=== PATIENT | female | born 1960 | race Caucasian/White ===

== ENCOUNTER → 2016-12-17 | Day surgery (SDC) | payer OTHER, MEDICARE ==
[~2016-12-17] MED LIST: ANTIVERT 25 MG25 MG PO; CALCIUM 600600 M1; CELEBREX200 MG PO; CYMBALTA60 MG PO; DOLOPHINE10 MG PO; FERREX PO; KEFLEX500 MG PO; LORAZEPAM0.5 MG PO; MORPHINE SULFAT30 M1 PO; NEURONTIN100 MG PO; NEXIUM20 MG PO; NOVAPLUS F100 MCG/HR TD; VITAMIN B12 1541 TAB PO; VITAMIN C100 M1 PO; VITAMIN D50000 IU PO
--- NOTE | 2016-12-17 11:24 | Operative Report ---
Operative/Inv Procedure Report Surgery Date: 12/17/16 Name of Procedure: Breast excisional biopsy with wire localization Pre-Operative Diagnosis: Left breast Microcalcifications Post-Operative Diagnosis: Same Estimated Blood Loss: less than 50ml Surgeon/[employer]isher: NABEEL CRESPO MD Anesthesia: local monitored anesthesi Specimens: Left breast biopsy Operative/Procedure Note Note: Patient had microcups case in the left breast and was unable tolerate stereotactic biopsy. Patient is brought to the operating room on 12/17/2016 after preoperative wire localization was performed the films reviewed. Anesthesia was administered, 2 g of Ancef was given, and the left breast was prepped and draped in sterile fashion using ChloraPrep. Local anesthesia 1% lidocaine exception Marcaine was given and a curvilinear incision was made at 1:00 in the left breast. The wire was brought into the incision. The area of Concern was grasped using an Allis clamp. The tissue was dissected and the specimen was marked for orientation and margin map. Intraoperative x-ray confirmed the presence of the calcifications in the specimen. Hemostasis was achieved using electrocautery. Deep tissue was approximated using interrupted Vicryl sutures, and the skin was closed using a running 4-0 subcuticular stitch. Steri-Strips and sterile dressings were applied, and the patient was transferred to the recovery room in satisfactory condition having tolerated the procedure well.
--- NOTE | 2016-12-17 14:55 | MAMMOGRAPHY REPORT ---
PROCEDURE: MM GUIDANCE FOR BREAST PREOPERATIVE NEEDLE LOCALIZATION, LEFT SPECIMEN RADIOGRAPHY CLINICAL INFORMATION: Suspicious left breast calcifications at upper outer quadrant at about 1 o'clock position seen on recent diagnostic mammogram done on 10/27/2016. Patient has spinal canal stenosis and is unable to undergo stereotactic biopsy. Excisional biopsy is requested. COMPARISON: Prior studies done on 10/27/2016. TECHNIQUE/FINDINGS: The details of the procedure, as well as the risks, benefits, and alternatives to the procedure were explained to the patient in detail and all of her questions were answered, after which, written informed consent was obtained. Prior to the procedure, the previous sonographic-guided tissue marker placement was localized using CC and ML views. Please note that there is no residual mass identified at this time in the biopsy bed. A time-out was performed, the lesion intended for needle localization was targeted and the skin of the left breast was then prepped and draped in the usual sterile fashion. Using mammographic guidance, sterile technique and buffered 2% lidocaine without epinephrine for local anesthesia, a 5 cm Kopans needle-wire was placed at the site of the tissue marker at 1 o'clock within the left breast. The patient tolerated the procedure well. The worksheet was appropriately labeled and was sent to the OR with the patient. Subsequently, following excision of the mass, specimen radiography was performed which revealed intact wire, and the targeted calcification. IMPRESSION: 1. Successful mammographic-guided needle localization of the left breast suspicious calcifications at upper outer quadrant at about 1 o'clock. 2. Final specimen radiograph confirming removal of the needle localization wire and removal of the targeted calcifications. An addendum will be made once the tissue diagnosis is available.
== END ==
LOC: STS 02:46 → CBW.IIU 07:00 → CBW.MAMMO 08:30
DX: R92.0 Mammographic microcalcification found on diagnostic imaging of breast (principal); I10 Essential (primary) hypertension; M48.02 Spinal stenosis, cervical region; Z87.891 Personal history of nicotine dependence; R92.8 Other abnormal and inconclusive findings on diagnostic imaging of breast
CPT/HCPCS: 88307; J0131; J0690; J2001; J2250